=== PATIENT | female | born 1955 | race Caucasian/White ===

== ENCOUNTER 2021-09-28 15:32 | Emergency (ER) | payer MEDICARE, OTHER ==
[2021-09-28] MEDS ORDERED: Sodium Chloride 0.9% 10 ML Syringe FLUSH PRN (15:48)
[2021-09-28] MEDS ORDERED: Diltiazem 25 MG/5 ML SDV IVPUSH ONE ×2 (15:49→17:55)
[2021-09-28] MEDS ORDERED: Aspirin 81 MG Tab.Chew PO ONE (15:49)
[2021-09-28] MEDS ORDERED: Heparin Sodium 5,000 Units/ML Vial IVPUSH ONE (15:51)
[2021-09-28] MEDS ORDERED: Heparin Sodium/0.45% NaCl 25,000 UNITS/500 ML BAG IV SCH (16:00)
[2021-09-28 16:18] LABS: ANION GAP 12.8 mEq/L (7-13)
[2021-09-28] MEDS ORDERED: Iopamidol 755 Mg/ML 100 ML Bottle IVPUSH ONE (17:16)
[2021-09-28] MEDS ORDERED: cefTRIAXone 2 GM in Sodium Chloride 0.9% 100 ML IV ONE (17:42)
[2021-09-28] MEDS ORDERED: Meropenem 1 GM in Sodium Chloride 0.9% 100 ML IV ONE (17:54)
[2021-09-28] MEDS ORDERED: Diltiazem 125 MG in Sodium Chloride 0.9% 100 ML IV SCH (18:15)
[2021-09-28 22:34] LABS: PTT,PARTIAL THROMBOPLSTIN TIME 39.9 SEC (22.0-34.0)
== END 2021-09-28 23:04 | disposition home or self-care (01) ==
LOC: DL.ED 15:32
DX: U07.1 COVID-19 (principal); I21.4 Non-ST elevation (NSTEMI) myocardial infarction; I48.91 Unspecified atrial fibrillation; Z88.0 Allergy status to penicillin
CPT/HCPCS: 36415; 71045; 71260; 80053; 83735; 83880; 84484; 85025; 85379; 85610; 85730; 86140; 93005; 96365; 96366; 96367; 96375; 96376; 99285; A9270; J0696; J1644; J2185; J3490; Q9967; U0002